=== PATIENT | male | born 1945 | race Caucasian/White ===

== ENCOUNTER 2018-10-24 07:51 | Emergency (ER) | payer MEDICARE, OTHER ==
[2018-10-24 08:12] VITALS: BP 146/72
--- NOTE | 2018-10-24 09:23 | UC ---
UC General HPI - HPI Summary HPI Summary: fatigue / body aches x 5 days symptoms are moderate 6 out of 10 c/o sob on exertion , has no energy , feels feverish , has not checked his temp denies any cold sx, no cough , no abdominal pain no urinary sx no n/v/d/c , no calf pain - History of Current Complaint Chief Complaint: UCGeneralIllness Stated Complaint: BODYACHES Time Seen by Provider: 10/24/18 08:11 Hx Obtained From: Patient Onset/Duration: Gradual Onset, Lasting Days - 5, Still Present Timing: Constant Onset Severity: Moderate Current Severity: Moderate Pain Intensity: 5 Aggravating: exertion Alleviating: nothing Associated Signs & Symptoms: Positive: SOB, Weakness. Negative: Agitation, Abdominal Pain, Anticoagulation Therapy, Back Pain, Confusion, Cough, Chest Pain , Decreased Responsiveness, Dizziness, Diarrhea, Dysuria, Decreased Oral Intake , Diaphoresis, Edema, Fever, Headache, Hematemesis, Hemoptysis, Immunocompromised, Melena, Nausea, Palpitations, Recent Medication Changes, Syncope, Trauma, Vomiting, Wheezing - Allergy/Home Medications Allergies/Adverse Reactions: Allergies Allergy/AdvReac Type Severity Reaction Status Date / Time No Known Allergies Allergy Verified 10/24/18 08:05 Home Medications: Home Medications Aspirin EC TAB* [Ecotrin EC Low Dose 81 MG*] 81 mg PO DAILY 10/24/18 [History Confirmed 10/24/18] Dm/P-Ephed/Acetaminoph/Doxylam [Nimo-Danielson Plus Cold+Flu Pkt] 1 each PO Q6H PRN 10/24/18 [History Confirmed 10/24/18] Garlic [Sm Garlic] 150 mg PO DAILY 10/24/18 [History Confirmed 10/24/18] Lisinopril TAB* [Prinivil TAB*] 5 mg PO DAILY 10/24/18 [History Confirmed ] [place]-3 Fatty Acids (Nf) [Fish Oil (NF)] 1,000 mg PO DAILY 10/24/18 [History Confirmed 10/24/18] Simvastatin TAB(NF) [Zocor(NF)] 10 mg PO DAILY 10/24/18 [History Confirmed 10/24] Vitamin THERAPEUTIC TAB* [Theragran TAB*] 1 tab PO DAILY 10/24/18 [History Confirmed 10/24/18] PMH/Surg Hx/FS Hx/Imm Hx Cardiovascular History: Hypertension - Surgical History Surgical History: None - Family History Known Family History: Positive: Hypertension - Social History Alcohol Use: "six pack a beer" several times a week Substance Use Type: None Smoking Status (MU): Former Smoker Length of Time of Smoking/Using Tobacco: <1/7 PPD x ~18 Years When Did the Patient Quit Smoking/Using Tobacco: 1980 Review of Systems All Other Systems Reviewed And Are Negative: Yes Constitutional: Positive: Chills, Fatigue Skin: Positive: Negative Eyes: Positive: Negative ENT: Positive: Negative Respiratory: Positive: Shortness Of Breath Cardiovascular: Positive: Negative Musculoskeletal: Positive: Arthralgia, Myalgia. Negative: Edema Neurological: Positive: Weakness Is Patient Immunocompromised?: No Physical Exam Triage Information Reviewed: Yes Appearance: Well-Appearing, No Pain Distress, Well-Nourished Vital Signs: Initial Vital Signs Temp 98.5 F 10/24/18 08:04 Pulse 104 10/24/18 08:04 Resp 16 10/24/18 08:04 BP 146/72 10/24/18 08:04 Pulse Ox 97 10/24/18 08:04 Vital Signs Reviewed: Yes Eye Exam: Normal Eyes: Positive: Conjunctiva Clear ENT: Positive: Normal ENT inspection, Hearing grossly normal, Pharynx normal, TMs normal Neck exam: Normal Neck: Positive: Supple, Nontender, No Lymphadenopathy Respiratory: Positive: Chest non-tender, Lungs clear, Normal breath sounds, No respiratory distress Cardiovascular: Positive: RRR, No Murmur, Pulses Normal Abdominal Exam: Normal Abdomen Description: Positive: Nontender, No Organomegaly, Soft. Negative: CVA Tenderness (R), CVA Tenderness (L), Distended, Guarding Bowel Sounds: Positive: Present Neurological Exam: Normal Neurological: Positive: Alert, Muscle Tone Normal, Fatigued Skin Exam: Normal Course/Dx - Diagnoses Provider Diagnosis: Fatigue Discharge ED - Sign-Out/Discharge Documenting (check all that apply): Patient Departure All imaging exams completed and their final reports reviewed: No Studies - Discharge Plan Condition: Stable Disposition: HOME Prescriptions: Ciprofloxacin HCl [Cipro] 500 mg PO BID #20 tablet Patient Education Materials: Weakness (ED) Referrals: Francisco Rao MD [Primary Care Provider] - 5 Days Additional Instructions: will check cbc, cmp , Lyme cont. with rest, increase fluid, take Tylenol as needed for pain / fever concern about Prostatitis , will start cipro x 10 days please follow up with your pcp in 5 days, go to ED if getting worse - Billing Disposition and Condition Condition: STABLE Disposition: Home
[2018-10-24 14:29] LABS: ABS Eosinophils 0.6 10^3/ul (0-0.6); ABS Lymphocytes 1.1 10^3/ul (1.0-4.8); ABS Monocytes 0.8 10^3/ul (0-0.8); ABS Neutrophils 6.2 10^3/ul (1.5-7.7); Eosinophil % 6.7 %; Hematocrit 45 % (42-52); Hemoglobin 15.3 g/dL (14.0-18.0); Lymphocyte % 12.4 %; Mean Corpuscular HGB Conc 34 g/dL (31-36); Mean Corpuscular Hemoglobin 32 pg (27-31); Mean Corpuscular Volume 93 fL (80-94); Mean Platelet Volume 8.8 fL (7.4-10.4); Nucleated Red Blood Cells % 0.2; Platelet Count 186 10^3/uL (150-450); Red Blood Count 4.82 10^6 /uL (4.18-5.48); Red Cell Distribution Width 13 % (10-15); White Blood Count 8.8 10^3/uL (3.5-10.8)
[2018-10-24 14:41] LABS: Albumin 3.7 g/dL (3.2-5.2); Calcium 9.3 mg/dL (8.6-10.3); Potassium 4.8 mmol/L (3.5-5.0); Total Bilirubin 1.1 mg/dL (0.2-1.0)
[2018-10-24 14:47] LABS: Albumin/Globulin Ratio 1.3 (1-3); BUN/Creatinine Ratio 20.2 (8-20); EGFR African American 89.4 (>60); EGFR Non-African American 73.9 (>60); Globulin 2.8 g/dL (2-4); Total Protein 6.5 g/dL (6.4-8.9)
--- NOTE | 2018-10-25 08:44 | UC ---
- Progress Note Progress Note: Reviewed H+P--seen with malaise, no particular GI symptoms. Labs show elevation of his liver enzymes which are relatively mild, bili increased. This could be related to his reported alcohol intake, but could also be due to gallbladder disease or other liver problems. Should follow up with his PMD to reassess and consider further work up. Course/Dx - Diagnoses Provider Diagnoses: Fatigue Discharge ED - Sign-Out/Discharge Documenting (check all that apply): Patient Departure All imaging exams completed and their final reports reviewed: No Studies - Discharge Plan Condition: Stable Disposition: HOME Prescriptions: Ciprofloxacin HCl [Cipro] 500 mg PO BID #20 tablet Patient Education Materials: Weakness (ED) Referrals: Francisco Rao MD [Primary Care Provider] - 5 Days Additional Instructions: will check cbc, cmp , Lyme cont. with rest, increase fluid, take Tylenol as needed for pain / fever concern about Prostatitis , will start cipro x 10 days please follow up with your pcp in 5 days, go to ED if getting worse - Billing Disposition and Condition Condition: STABLE Disposition: Home
== END 2018-10-24 09:18 | disposition home or self-care (01) ==
LOC: UCCORT 07:51
DX: R53.83 Other fatigue (principal); I10 Essential (primary) hypertension; Z87.891 Personal history of nicotine dependence
CPT/HCPCS: 36415; 80053; 81003; 85025; 86618; 93005; 99202; G0463